=== PATIENT | female | born 1970 | race Caucasian/White ===

== ENCOUNTER 2018-05-16 12:45 | Inpatient (IN) ==
[2018-05-16] MEDS ORDERED: hydrOXYzine pamoate 25 MG CAPSULE PO STA (13:11)
[2018-05-16 13:35] LABS: Basophils # 0.1 K/mcL (0.0-0.2); Basophils % 0.6 %; Eosinophils # 0.1 K/mcL (0.0-0.6); Eosinophils % 0.7 %; Hematocrit 39.6 % (35.3-44.9); Hemoglobin 12.8 g/dL (11.5-15.4); Immature Granulocytes % 0.2 % (0-4); Lymphocytes # 1.5 K/mcL (0.6-4.6); Lymphocytes % 18.9 %; Mean Corpuscular HGB Conc 32.3 g/dL (31.6-35.5); Mean Corpuscular Hemoglobin 29.9 pg (28.0-33.3); Mean Corpuscular Volume 92.5 fL (83.0-100.0); Monocytes # 0.5 K/mcL (0.0-1.3); Platelet Count 398 K/mcL (140-400); Red Blood Count 4.28 M/mcL (3.82-4.97); Red Cell Distribution Width 13.9 % (11.5-14.5); Segmented Neutrophils % 73.6 %
[2018-05-16 13:51] LABS: Alanine Aminotransferase 27 Units/L (7-52); Albumin 3.8 g/dL (3.5-5.7); Albumin/Globulin Ratio 1.3 (1.1-2.2); Alkaline Phosphatase 87 Units/L (34-104); Aspartate Amino Transferase 26 Units/L (13-39); BUN/Creatinine Ratio 25 (6-26); Bilirubin,Total 0.5 mg/dL (0.3-1.0); Blood Urea Nitrogen 23 mg/dL (6-20); Calcium 9.2 mg/dL (8.6-10.3); Carbon Dioxide 34 mEq/L (23-29); Chloride 98 mEq/L (98-107); Glucose 122 mg/dL (70-105); Osmolality,Calculated 295 (280-300); Potassium 3.6 mEq/L (3.5-5.1); Sodium 140 mEq/L (136-145); Total Protein 6.8 g/dL (6.4-8.9); eGFR For Non-African Americans > 60 (> 60)
[2018-05-16 13:59] LABS: INR 1.2; Prothrombin Time 13.5 Seconds (9.4-12.1)
[2018-05-16 14:01] LABS: Activated Partial Thrombo Time 31.3 Seconds (26.0-36.0)
[2018-05-16 14:06] LABS: Bilirubin,Urine Negative (Negative); Blood,Urine Negative (Negative); Clarity,Urine Clear (Clear); Color,Urine Yellow (Yellow); Glucose,Urine (UA) Normal (Normal); Ketones,Urine Negative (Negative); Leukocyte Esterase,Urine Negative (Negative); Nitrite,Urine Negative (Negative); PH,Urine 8.5 pH Units (5.0-8.0); Protein,Urine 100 mg/dL (Neg-Trace); Specific Gravity,Urine 1.015 (1.010-1.025); Urobilinogen,Urine Normal (Normal)
--- NOTE | 2018-05-16 14:09 | Emergency Department Note ---
Disposition Clinical Impression: Ascites, Pleural effusion, Dyspnea Disposition: Admitted As Inpatient Condition: Fair Referrals: NONE,PCP [Primary Care Provider] - Time of Disposition: 14:10 (Filemon Krishna SOB HPI - General Chief Complaint: ED Shortness of Breath/Dyspnea Stated Complaint: "Im so overwhelmed" Time Seen by Provider: 05/16/18 12:48 Source: EMS Mode of arrival: EMS Limitations: no limitations Nursing Notes Reviewed: Yes Vital Signs Reviewed: Yes - History of Present Illness Pt Subjective Complaint: shortness of breath Onset (ago): day(s) Context: other (dx hepatitis) Severity: moderate Consistency/Duration: constant Improves with: oxygen Worsens with: exertion Associated symptoms: Reports: cough, orthopnea. Denies: chest pain, pain with inspiration, fever, wheezing, sputum production, lower extremity pain, polyuria, polydipsia, parasthesias, palpitations, hemoptysis, diaphoresis, nausea/vomiting, syncope, abdominal pain, rash, sense of impending doom Treatment prior to arrival: none Cough present: No Sputum production: No - Related Data Home Medications Medication Instructions Recorded Confirmed No Known Home Drugs 05/16/18 05/16/18 Allergies Allergy/AdvReac Type Severity Reaction Status Date / Time tramadol [From Ultram] AdvReac Seizure Verified 01/01/16 13:36 All systems ED: reviewed and negative except as stated. Review of Systems: As Per HPI Constitutional: Denies: fever, chills, weakness Eyes: Denies: eye pain, eye discharge ENT ED: Denies: ear pain, throat pain Cardiovascular: Reports: dyspnea on exertion, edema, paroxysmal nocturnal dyspnea. Denies: chest pain, palpitations Respiratory: Reports: cough, dyspnea Gastrointestinal: Reports: abdominal pain. Denies: nausea, vomiting Genitourinary: Denies: urgency, dysuria, frequency Musculoskeletal: Reports: other (Lower extremity swelling) Integumentary: Denies: rash, abrasion, lesions Neurological: Denies: headache, weakness Psychiatric: Denies: anxiety, depression Endocrine: Denies: fatigue Hematological/Lymphatic: Denies: easy bleeding Allergic/Immunologic: Denies: facial swelling Past Medical History - Past Medical History Attestation: Yes The following information was validated with the patient. Source: patient, old records reviewed, nursing notes reviewed Medical history: Reports: hepatitis, seizures Psychiatric history: Reports: anxiety, depression - Social History Smoking Status: Former smoker Smokeless Tobacco Status: No Alcohol use: Reports: none Drug use: Reports: none Physical Exam - General Limitations: no limitations General appearance: alert, anxious, in distress - Head Head exam: atraumatic, normocephalic, normal inspection - Eye Eye exam: Present: normal appearance, PERRL, EOMI - ENT ENT exam: normal exam, normal oropharynx, mucous membranes moist, TM's normal bilaterally, normal external ear exam - Neck Neck exam: Present: normal inspection, full ROM, trachea midline - Chest Chest inspection: Present: normal inspection, symmetric chest wall rise - Respiratory Respiratory exam: Present: normal lung sounds bilaterally, other (Patient breath sounds on the right in comparison to the left) - Cardiovascular Cardiovascular exam: Present: tachycardia, normal heart sounds - Abdominal Exam Abdominal exam: Present: soft, Non-Tender, distention, normal bowel sounds, other (Positive fluid shift). Absent: mass, pulsatile mass - Expanded Upper Extremity Exam Shoulder exam: Present: normal inspection, full ROM Arm exam: Present: normal inspection, full ROM Elbow exam: Present: normal inspection, full ROM Forearm/Wrist exam: Present: normal inspection, full ROM Hand exam: Present: normal inspection, full ROM Vascular exam: Normal: capillary refill, radial pulse - Expanded Lower Extremity Exam Hip/Pelvis exam: Present: normal inspection, full ROM Upper leg exam: Present: normal inspection, full ROM Knee exam: Present: normal inspection, full ROM Lower leg exam: Present: normal inspection, full ROM, swelling Ankle exam: Present: normal inspection, full ROM, swelling Foot/toe exam: Present: normal inspection, full ROM, swelling Neurovascular/Tendon exam: Present: normal capillary refill, normal fine/light touch. Absent: motor deficit, sensory deficit, tendon deficit Gait: observed and normal - Back Exam Back exam: Present: normal inspection, full ROM. Absent: muscle spasm - Neurological Exam Neurological exam: Present: alert, oriented X3, CN II-XII intact, normal gait - Psychiatric Psychiatric exam: Present: normal affect, normal mood - Skin Skin exam: Present: warm, dry, intact, normal color Course Course Narrative: Patient was seen and evaluated laboratory data was done including a chest x-ray and the CT of the abdomen and pelvis to make sure that there was no acute intra- surgical etiology for the abdomen shows that she has got fluid retention within the abdomen region as well as a large pleural effusion which will need to be tapped to help resolve some of the dyspnea that this is probably also contributed the fact why the patient is having anxiety issues when she lays down as result patient be admitted I spoke personally to Dr. Colbert he is going to do the thoracentesis on the floor patient was transferred stable Vital Signs Temperature 97.3 F L 05/16/18 12:48 Pulse Rate 114 05/16/18 12:48 Respiratory Rate 18 05/16/18 12:48 Blood Pressure 114/79 05/16/18 12:48 O2 Sat by Pulse Oximetry 90 05/16/18 12:48 Temperature 97.3 F L 05/16/18 12:48 Pulse Rate 114 05/16/18 12:48 Respiratory Rate 18 05/16/18 12:48 Blood Pressure 114/79 05/16/18 12:48 O2 Sat by Pulse Oximetry 90 05/16/18 12:48 Oxygen Delivery Oxygen Delivery Room Air Shortness of Breath/Dyspnea - MDM Narrative Medical decision making narrative: pleural effuson anasarca - Differential Diagnosis Likely: pneumonia, pneumothorax - Medical Records Medical records reviewed: Yes I reviewed the patient's medical records. - Lab Data Lab results reviewed: Yes I reviewed the patient's lab results. - Radiology Data Radiology results reviewed: Yes I reviewed the patient's radiology results. ITS Impressions Abdomen/Pelvis CT 05/16/18 13:11 IMPRESSION: Partially visualized large right pleural effusion. Large amount of abdominal ascites. Anasarca. D/ / Michel Lin / Michel Lin Interpreting Provider: Michel Lin Chest X-Ray 05/16/18 13:11 IMPRESSION: 1. Congestive heart failure. D/ / Jad Nelson MD / Jad Nelson MD Interpreting Provider: Jad Nelson MD - EKG Data EKG attestation: Yes I reviewed and interpreted this EKG. EKG results narrative: Patient's heart rate is 128 RI/24 QRS is 75 QT 339 axis XXVIII sinus tach anterior septal wall prior myocardial infarction possibility because the widening of the T waves nonspecific T-wave changes Critical Care Time Critical Care Time: Yes Total Critical Care Time: 35 Attestation: Dyspnea high probability of significant life-threatening deterioration is patient's condition and results of anasarca as well as oral effusion with need for tapping of the pleural space which will be done by the hospitalist which I discussed the case with
[2018-05-16 14:19] LABS: Bacteria,Urine Few per hpf (None-Few); Squamous Epithelial Cell,Urine Few per lpf (None-Few)
[2018-05-16] MEDS ORDERED: 0.9 % Sodium Chloride 1,000 ML IVC SCH (15:00)
[2018-05-16] MEDS ORDERED: Naloxone 0.4 MG/ML INJ IVP PRN (15:00)
--- NOTE | 2018-05-16 18:17 | Internal Med History&Physical ---
Date of Encounter: 05/16/18 Time of Encounter: 17:30 Assessment and Plan (1) Ascites Current visit: Yes Status: Acute I offered to do paracentesis and/ or thoracentesis to relieve dyspnea. She states she "does not like needles" and has panic attacks. She chose to try diuretic treatment initially. BN peptide and echocardiogram will be done to further evaluate. Qualifiers: Ascites type: other type Qualified Code(s): R18.8 - Other ascites (2) Pleural effusion Current visit: Yes Status: Acute As above (3) Hepatitis C Current visit: Yes Status: Acute Presumed from history. Hepatitis profile will be ordered to confirm. Qualifiers: Viral hepatitis chronicity: unspecified Hepatic coma status: without hepatic coma Qualified Code(s): B19.20 - Unspecified viral hepatitis C without hepatic coma Internal Medicine - H&P: HPI Chief complaint: Dyspnea, edema Admitted From: Emergency Dept Plans for Post Hospital Care: Home History of present illness: Ms. Carey is a 47 year old female who came to emergency room complaining of increased dyspnea and leg edema over the past week. She reports minimal cough but no productivity. She had slight amount of diarrhea. Denies vomiting or chest pain. She was evaluated in emergency room and was found to have ascites and significant right pleural effusion. She was admitted to [facility] floor for ongoing care needs. She states she was seen at [facility] emergency room a few days ago was told she might have hepatitis C. She states she was given "water pills" and was referred to a "specialist" for outpatient follow-up. She denies hypertension [place] heart failure angina DVT or pulmonary embolus. She denies other known disorders of her liver gallbladder or exocrine pancreas. She states she has consumed minimal alcohol in her lifetime. She does admit to recreational drug use in the past. Past Med Surg Social Fam HX - Past Medical History Medical history: hepatitis, seizures Additional medical history: Previous PN Psychiatric history: anxiety, bipolar, depression, panic disorder - Past Surgical History Additional surgical history: ANKLE SX, TUBAL LIGATION - Social History Smoking Status: Former smoker Smokeless Tobacco Status: No Alcohol use: none Drug use: none Internal Medicine - H&P: Meds No Known Home Drugs 05/16/18 [History] Allergy/AdvReac Type Severity Reaction Status Date / Time tramadol [From Ultram] AdvReac Seizure Verified 01/01/16 13:36 All Systems PM: A 10-system review of systems was performed and is negative for pertinent findings except as documented above in the HPI. Review of systems: Gen.: She states her weight has increased approximately 10 pounds in the past year Cardiovascular: As per history of present illness Respiratory: She states she smoked from approximately age 30 until 1 month ago never exceeding 1 pack per day. She thinks she may have asthma. She does not use home oxygen. GI: As per history of present illness : She denies hematuria dysuria or kidney stones Neurologic: She reports seizures onset at age 13 but has had no seizures for over 7 years. She denies large distribution strokes. Endocrine: She denies diabetes thyroid disease or hyperlipidemia Hematology/oncology: She denies blood disorders cancers or anemia Psychiatric: She reports anxiety, bipolar disorder, PTSD, and panic attacks. She does not follow with mental health personnel and does not take any medications. [place] skeletal: She has occasional arthralgias. She has had left knee arthroscopic surgery and left ankle ORIF fracture repair remotely. - Constitutional Vitals: Temp Pulse Resp BP Pulse Ox 97.3 F L 121 20 104/90 92 05/16/18 12:48 05/16/18 14:15 05/16/18 14:15 05/16/18 14:15 05/16/18 14:15 Exam: Gen.: She is a well-developed well-nourished female sitting on the side of bed who appears minimally dyspneic at rest. HEENT: Head is atraumatic and normocephalic. Eyes: EOMI. There is no scleral icterus. Mouth: Mucosa is moist. Neck: Supple and nontender. There is no thyromegaly or adenopathy noted. Heart: Regular without murmurs gallops or ectopics Lungs: She has dullness to percussion in the right lower lung field with egophony. The left lung is unremarkable. Back: Straight without flank tenderness. She has mild presacral pitting edema Abdomen: She has ascites present to percussion. Exam is difficult because she is in the upright position and states she cannot lie down comfortably because of dyspnea Extremities: She has 1+ edema of the dorsal feet and lower legs bilaterally. Dorsalis pedis posterior tibial pulses are not palpated. Neurologic: Mental status: She is talkative and a good historian. Cranial nerves: Smile is symmetric. Forehead wrinkles bilaterally. Tongue protrudes midline. EOMI. Motor: There is no pronator drift. Cerebellar: Finger to nose is intact bilaterally. Skin: Warm and dry Internal Med - H&P Results - Labs CBC & Chem 7: 05/16/18 13:28 05/16/18 13:28 Labs: Short CBC 05/16/18 Range/Units 13:28 WBC 8.1 (4.3-11.1) K/mcL Hgb 12.8 (11.5-15.4) g/dL Hct 39.6 (35.3-44.9) % Plt Count 398 (140-400) K/mcL Neutrophils # 6.0 (1.6-8.9) K/mcL BMP 05/16/18 13:28 Sodium 140 Potassium 3.6 Chloride 98 Carbon Dioxide 34 H BUN 23 H Creatinine 0.93 Glucose 122 H Calcium 9.2 Liver Function 05/16/18 Range/Units 13:28 Total Bilirubin 0.5 (0.3-1.0) mg/dL AST 26 (13-39) Units/L ALT 27 (7-52) Units/L Alkaline Phosphatase 87 (34-104) Units/L Albumin 3.8 (3.5-5.7) g/dL Urine 05/16/18 Range/Units 13:50 Urine Color Yellow (Yellow) Urine Clarity Clear (Clear) Urine pH 8.5 H (5.0-8.0) pH Units Ur Specific [place] 1.015 (1.010-1.025) Urine Protein 100 H (Neg-Trace) mg/dL Urine Glucose (UA) Normal (Normal) mg/dL - Impressions ITS Impressions Abdomen/Pelvis CT 05/16/18 13:11 IMPRESSION: Partially visualized large right pleural effusion. Large amount of abdominal ascites. Anasarca. D/ / Michel Lin / Michel Lin Interpreting Provider: Michel Lin Chest X-Ray 05/16/18 13:11 IMPRESSION: 1. Congestive heart failure. D/ / Jad Nelson MD / Jad Nelson MD Interpreting Provider: Jad Nelson MD
[2018-05-16] MEDS: Furosemide 40 MG/4 ML VIAL IVP SCH ×2 (18:19→20:44)
[2018-05-16] MEDS: ALPRAZolam 0.25 MG TABLET PO PRN (18:28)
[2018-05-16] MEDS: Acetaminophen 325 MG TABLET PO PRN (18:29)
[2018-05-16] MEDS ORDERED: traZODone 50 MG TABLET PO PRN (23:19)
[2018-05-16 23:47] LABS: Hepatitis B Surface Antigen Nonreactive (Nonreactive)
[2018-05-17 00:16] LABS: Hepatitis B Core IgM Nonreactive (Nonreactive)
[2018-05-17 00:17] LABS: Hepatitis A Antibody IgM Nonreactive (Nonreactive)
[2018-05-17] MEDS: ALPRAZolam 0.25 MG TABLET PO PRN ×4 (00:48→13:10)
[2018-05-17] MEDS ORDERED: Simethicone 80 MG TAB.CHEW PO PRN (02:24)
[2018-05-17] MEDS ORDERED: ALPRAZolam 0.25 MG TABLET PO SCH (03:45)
[2018-05-17 05:55] LABS: Basophils # 0.1 K/mcL (0.0-0.2); Basophils % 0.6 %; Eosinophils # 0.1 K/mcL (0.0-0.6); Eosinophils % 1.2 %; Hematocrit 35.8 % (35.3-44.9); Hemoglobin 11.6 g/dL (11.5-15.4); Immature Granulocytes % 0.3 % (0-4); Lymphocytes % 23.4 %; Mean Corpuscular HGB Conc 32.4 g/dL (31.6-35.5); Mean Corpuscular Hemoglobin 30.1 pg (28.0-33.3); Mean Corpuscular Volume 92.7 fL (83.0-100.0); Mean Platelet Volume 10.4 fL (9.4-12.4); Monocytes # 0.7 K/mcL (0.0-1.3); Monocytes % 8.1 %; Neutrophils # 5.8 K/mcL (1.6-8.9); Platelet Count 355 K/mcL (140-400); Red Blood Count 3.86 M/mcL (3.82-4.97); Red Cell Distribution Width 14.1 % (11.5-14.5); Segmented Neutrophils % 66.4 %
[2018-05-17 06:19] LABS: BUN/Creatinine Ratio 27 (6-26); Blood Urea Nitrogen 25 mg/dL (6-20); Calcium 9.1 mg/dL (8.6-10.3); Carbon Dioxide 32 mEq/L (23-29); Chloride 98 mEq/L (98-107); Glucose 105 mg/dL (70-105); Osmolality,Calculated 293 (280-300); Potassium 3.4 mEq/L (3.5-5.1); Sodium 139 mEq/L (136-145); eGFR For Non-African Americans > 60 (> 60)
[2018-05-17 07:13] LABS: Hepatitis C Virus Antibody Reactive (Nonreactive)
[2018-05-17] MEDS: Furosemide 40 MG/4 ML VIAL IVP SCH (08:29)
--- NOTE | 2018-05-17 09:55 | Internal Med Progress Note ---
Date of Encounter: 05/17/18 Time of Encounter: 09:48 - Assessment and plan (1) Ascites Current Visit: Yes Status: Acute Assessment and plan: May 17. Possibly due to heart failure. Liver did not appear cirrhotic on abdominal CT. Awaiting echocardiogram. Qualifiers: Ascites type: other type Qualified Code(s): R18.8 - Other ascites (2) Pleural effusion Current Visit: Yes Status: Acute Assessment and plan: May 17. Possibly due to heart failure. Echocardiogram ordered. (3) Hepatitis C Current Visit: Yes Status: Acute Assessment and plan: May 17. Now confirmed. Liver did not appear cirrhotic on CT. PCP can address/refer for definitive treatment. Qualifiers: Viral hepatitis chronicity: unspecified Hepatic coma status: without hepatic coma Qualified Code(s): B19.20 - Unspecified viral hepatitis C without hepatic coma (4) Heart failure Current Visit: Yes Status: Acute Assessment and plan: May 17. BN peptide returned elevated yesterday and has risen further to 1181 today. Echocardiogram pending. Continue IV Lasix. Qualifiers: Heart failure type: unspecified Heart failure chronicity: unspecified Qualified Code(s): I50.9 - Heart failure, unspecified (5) Hypokalemia Current Visit: Yes Status: Acute Assessment and plan: May 17. Potassium level has decreased to 3.4. Supplemental potassium has been ordered. Continue IV Lasix. - Subjective Interval history: May 17. She has no new complaints. She states her dyspnea has slightly lessened. - Constitutional Vitals: Temp Pulse Resp BP Pulse Ox 97.3 F L 97 18 120/94 95 05/17/18 06:29 05/17/18 06:29 05/17/18 06:29 05/17/18 08:37 05/17/18 06:29 Exam: She is resting comfortably in bed and appears in no acute distress. Her affect is overall cheerful. Extremities shows slight decrease in edema from yesterday. I reviewed her medications and lab results. Internal Medicine: Result - Labs CBC & Chem 7: 05/17/18 04:30 05/17/18 04:30 Labs: Short CBC 05/16/18 05/17/18 Range/Units 13:28 04:30 WBC 8.1 8.7 (4.3-11.1) K/mcL Hgb 12.8 11.6 (11.5-15.4) g/dL Hct 39.6 35.8 (35.3-44.9) % Plt Count 398 355 (140-400) K/mcL Neutrophils # 6.0 5.8 (1.6-8.9) K/mcL BMP 05/16/18 05/17/18 13:28 04:30 Sodium 140 139 Potassium 3.6 3.4 L Chloride 98 98 Carbon Dioxide 34 H 32 H BUN 23 H 25 H Creatinine 0.93 0.94 Glucose 122 H 105 Calcium 9.2 9.1 Liver Function 05/16/18 Range/Units 13:28 Total Bilirubin 0.5 (0.3-1.0) mg/dL AST 26 (13-39) Units/L ALT 27 (7-52) Units/L Alkaline Phosphatase 87 (34-104) Units/L Albumin 3.8 (3.5-5.7) g/dL Urine 05/16/18 Range/Units 13:50 Urine Color Yellow (Yellow) Urine Clarity Clear (Clear) Urine pH 8.5 H (5.0-8.0) pH Units Ur Specific [place] 1.015 (1.010-1.025) Urine Protein 100 H (Neg-Trace) mg/dL Urine Glucose (UA) Normal (Normal) mg/dL - ABG Interpretation ABG results: PT/INR, D-dimer PT 13.5 Seconds (9.4-12.1) H 05/16/18 13:28 - Impressions Impressions Abdomen/Pelvis CT 05/16/18 13:11 IMPRESSION: Partially visualized large right pleural effusion. Large amount of abdominal ascites. Anasarca. D/ / Michel Lin / Michel Lin Interpreting Provider: Michel Lin Chest X-Ray 05/16/18 13:11 IMPRESSION: 1. Congestive heart failure. D/ / Jad Nelson MD / Jad Nelson MD Interpreting Provider: Jad Nelson MD Chest X-Ray 05/17/18 07:00 IMPRESSION: Slight interval decrease in size of right pleural effusion. D/ / Theresa Raymond MD / Theresa Raymond MD Interpreting Provider: Theresa Raymond MD Consult Discharge Plan - Plan Referrals: NONE,PCP [Primary Care Provider] - 1 week
[2018-05-17] MEDS: Acetaminophen 325 MG TABLET PO PRN (11:57)
[2018-05-17] MEDS ORDERED: *HR* HYDROcodone/Acet 5/325 mg TABLET PO ONE (14:10)
--- NOTE | 2018-05-17 14:35 | Discharge Summary ---
Date of Encounter: 05/17/18 Time of Encounter: 11:30 - Discharge Diagnosis (1) Dilated cardiomyopathy Priority: Primary Status: Acute (2) Heart failure Priority: Secondary Status: Acute Qualifiers: Heart failure type: unspecified Heart failure chronicity: unspecified Qualified Code(s): I50.9 - Heart failure, unspecified (3) Ascites Priority: Secondary Status: Acute Qualifiers: Ascites type: other type Qualified Code(s): R18.8 - Other ascites (4) Pleural effusion Priority: Secondary Status: Acute (5) Hepatitis C Priority: Secondary Status: Acute Qualifiers: Viral hepatitis chronicity: unspecified Hepatic coma status: without hepatic coma Qualified Code(s): B19.20 - Unspecified viral hepatitis C without hepatic coma (6) Hypokalemia Priority: Secondary Status: Acute Hospital course: Ms. Carey is a 47 year old female who came to emergency room complaining of increased dyspnea and leg edema over the past week. She reports minimal cough but no productivity. She had slight amount of diarrhea. Denies vomiting or chest pain. She was evaluated in emergency room and was found to have ascites and significant right pleural effusion. She was admitted to [facility] for ongoing care needs. Initial orders were written by the emergency room physician. I saw her on May 16 and performed the history and physical. She declined paracentesis and thoracentesis when I saw her. She was given IV diuretics. Echocardiogram was ordered to further evaluate. BN peptide was also ordered. BN peptide returned elevated at 881. The echocardiogram showed LVEF of 20%. Left ventricular end-diastolic diameter was elevated at 5.70 cm. The interventricular septum and posterior wall thickness measurements were 1.00 and 1.20 cm respectively. There was LAE at 4.4 cm. There was reported ISACC without measurement recorded. There was significant valvular abnormality with moderate to severe aortic regurgitation, moderate to severe mitral regurgitation, and [id number] tricuspid regurgitation. The estimated RVSP was 50 mmHg. There was a small pericardial effusion present and a large pleural effusion seen. I discussed these findings with her and recommended she be seen by a acidizer for additional workup and treatment. She agreed to go to [facility] for ongoing care needs. - Time Spent with Patient Total time spent providing and/or coordinating discharge services: - Discharge Medications Prescriptions: No Action No Known Home Drugs 1 each .ROUTE AD each Home Medications: No Known Home Drugs 05/16/18 [History] Allergies/Adverse Reactions: Allergy/AdvReac Type Severity Reaction Status Date / Time tramadol [From [facility]] AdvReac Seizure Verified 01/01/16 13:36 Date of admission: 05/17/18 09:58 Primary care physician: PCP NONE - Constitutional Vitals: Temp Pulse Resp BP Pulse Ox 97.4 F L 111 21 103/73 93 05/17/18 10:38 05/17/18 10:38 05/17/18 10:38 05/17/18 10:38 05/17/18 10:38 - Patient Status Disposition: Transfer Other Condition: Fair - Discharge Instructions
[2018-05-17 14:39] VITALS: BP 116/81
[2018-05-17] MEDS ORDERED: ALPRAZolam 0.25 MG TABLET PO STA (15:47)
[2018-05-17] MEDS ORDERED: Furosemide 40 MG/4 ML VIAL IVP SCH (17:00)
--- NOTE | 2018-05-18 14:30 | Electrocardiograph Report ---
[address] [place], [place] [address] Test Date: 2018-05-16 Pat Name: Denise Carey Department: [id number] Room: [facility] Gender: F Soup Person: Shivani : 1970 Requested By: Sheela Whittaker Order Number: [id number] Reading MD: Kaley Metcalf Measurements Intervals [place] Rate: 120 P: 30 LA: 124 QRS: 28 QRSD: 75 T: 0 QT: 339 QTc: 410 Interpretive Statements SINUS TACHYCARDIA LOW QRS VOLTAGE IN EXTREMITY LEADS ANTEROSEPTAL MYOCARDIAL INFARCTION, PROBABLY OLD MODERATE T-WAVE ABNORMALITY, CONSIDER LATERAL ISCHEMIA Electronically Signed On 05-18-2018 14:29:08 EDT by Kaley Metcalf
== END 2018-05-17 16:44 | disposition other institution (70) | DRG 205 ==
LOC: INPPIK 12:45 → EMEROOPIK 12:45 → INPPIK 14:29
PROVIDERS: ADMIT Internal Medicine; ATTEND Internal Medicine